=== PATIENT | female | born 1945 | race Caucasian/White ===

== ENCOUNTER 2017-12-05 12:51 | Emergency (ER) | payer MEDICARE, OTHER ==
[~2017-12-05] VITALS: Ht 167.6 cm; Wt 60.0 kg
[~2017-12-05 12:51] MED LIST: LORT5TAB PO; LORT7.5T3 PO; PROM25TA5; TRAM100T19 OR
[2017-12-05 12:58] VITALS: BP 119/70; PULSE 69; RESP 16; TEMP 98.3; O2SAT 98
[2017-12-05] MEDS ORDERED: SODIUM CHLOR 0.9% 1000 ML INJ 1,000 ML IV SCH (13:21)
[2017-12-05] MEDS ORDERED: SODIUM CHLORIDE 0.9% FLUSH 10 ML FLUSH IV FLUSH PRN (13:30)
[2017-12-05] MEDS ORDERED: ONDANSETRON HCL 4 MG/2 ML VIAL IVP ONE (13:30)
[2017-12-05] MEDS ORDERED: PANTOPRAZOLE SODIUM 40 MG VIAL IVP ONE (13:30)
[2017-12-05] MEDS ORDERED: DIATRIZOATE MEGLUM/DIATRIZOATE SOD 9 ML CUP ONE ×2 (13:51→14:05)
--- NOTE | 2017-12-05 13:55 | PD ---
HPI Chief Complaint: GI Complaint Time Seen by Provider: 13:03 Travel History International Travel<30 days: No Contact w/Intl Traveler<30days: No Traveled to known affect area: No History of Present Illness HPI 72-year-old female presents emergency department with ongoing diffuse abdominal pain. Patient has long history of difficulty with her stomach since she was a young woman. She has extensive records with her including recommendations for colonoscopy and CT of the abdomen and pelvis. Patient recently had an ultrasound without significant findings. Patient has been seen by gastroenterology and recommended to have colonoscopy, which the patient does not want to pursue. She states he takes Ativan 0.5 mg daily as well as tramadol recently for her pain which seems to help. Patient also takes Nexium. She has a long list of medications which she currently does not take she states that did not help. Patient denies fever, chills, or vomiting. She does have nausea and decreased appetite. She states her weight loss of 30 pounds in the last 6 months without trying. Pain seems to be mainly in the right upper quadrant and over the stomach region. She denies urinary symptoms or changes. She is a nondrinker. Patient states she likes to use "herbs and vitamins" to treat her symptoms. Patient is allergic to codeine and erythromycin. PFSH Past Medical History Cancer: No Cardiovascular Problems: Yes ([place]) Diabetes: No Hepatitis: No Hiatal Hernia: No Hypertension: No Medical other: Yes (REFLUX, LYME DISEASE) Respiratory: No Immunizations Current: No Thyroid Disease: No ?: Not Menopausal: Yes Past Surgical History Abdominal Surgery: Yes (RADHA) Cholecystectomy: Yes Gynecologic Surgery: Yes (LAPAROSCOPY ) Hysterectomy: Yes Oral Surgery: Yes (TONSILLECTOMY) Other Surgery: Yes Social History Alcohol Use: No Tobacco Use: Yes Substance Use: No Allergies-Medications (Allergen,Severity, Reaction): Coded Allergies: codeine (Unverified Allergy, Severe, Nausea/Vomiting, 04/22/17) NAUSEA VOMITING CONSTIPATION erythromycin base (Unverified Allergy, Severe, Nausea/Vomiting, 04/22/17) NAUSEA VOMITING CONSTIPATION Reported Meds & Prescriptions Reported Meds & Active Scripts Active Reported Tramadol (Tramadol HCl) 50 Mg Tab 50 Mg PO Q4H PRN Ativan (Lorazepam) 0.5 Mg Tab 0.5 Mg PO HS PRN Review of Systems Except as stated in HPI: all other systems reviewed are Neg General / Constitutional: No: Fever Eyes: No: Visual changes HENT: No: Headaches Cardiovascular: No: Chest Pain or Discomfort Respiratory: No: Shortness of Breath Gastrointestinal: Positive: Nausea, Abdominal Pain (See history of present illness), Constipation, Loss of Appetite, No: Vomiting, Diarrhea, Indigestion, Dysphagia Genitourinary: No: Dysuria Musculoskeletal: No: Pain Skin: No Rash Neurologic: No: Weakness Psychiatric: No: Depression Endocrine: No: Polydipsia Hematologic/Lymphatic: No: Easy Bruising Physical Exam Narrative GENERAL: Patient appears in no obvious distress. She is ambulatory to the room in the bathroom without difficulty. SKIN: Warm and dry. Normal color. Normal turgor. No rash. HEAD: Atraumatic. Normocephalic. EYES: Pupils equal and round. No scleral icterus. No injection or drainage. ENT: No nasal bleeding or discharge. Mucous membranes pink and moist. Pharynx is clear. Airways patent. NECK: Trachea midline. Supple and nontender. CARDIOVASCULAR: Regular rate and rhythm. RESPIRATORY: No accessory muscle use. Clear to auscultation. Breath sounds equal bilaterally. GASTROINTESTINAL: Abdomen soft, mild to moderate diffuse tenderness with palpation along the right upper quadrant and epigastric region. There is no guarding or rebound, abdomen is nondistended. Hepatic and splenic margins not palpable. Bowel sounds are normal in all quadrants. There are no masses appreciated. There is no CVA tenderness. MUSCULOSKELETAL: Extremities without clubbing, cyanosis, or edema. No obvious deformities. NEUROLOGICAL: Awake and alert. No obvious cranial nerve deficits. Motor grossly within normal limits. Five out of 5 muscle strength in the arms and legs. Normal speech. PSYCHIATRIC: Appropriate mood and affect; insight and judgment normal. Data Data Last Documented VS Vital Signs Date Time Temp Pulse Resp B/P (MAP) Pulse Ox O2 Delivery O2 Flow Rate FiO2 12/05/17 12:58 98.3 69 16 119/70 (86) 98 Orders Orders Complete Blood Count With Diff (12/05/17 13:21) Comprehensive Metabolic Panel (12/05/17 13:21) Lipase (12/05/17 13:21) Lactic Acid (12/05/17 13:21) Urinalysis - C+S If Indicated (12/05/17 13:21) Ct Abd/Pel W Iv Contrast(Rout) (12/05/17 13:21) Iv Access Insert/Monitor (12/05/17 13:21) Ecg Monitoring (12/05/17 13:21) Oximetry (12/05/17 13:21) Ondansetron Inj (Zofran Inj) (12/05/17 13:30) Pantoprazole Inj (Protonix Inj) (12/05/17 13:30) Sodium Chlor 0.9% 1000 Ml Inj (Ns 1000 M (12/05/17 13:21) Sodium Chloride 0.9% Flush (Ns Flush) (12/05/17 13:30) Oral Contrast - Adult (12/05/17 13:25) Diatrizoate Liq (Md Guerra Liq) (12/05/17 13:51) Diatrizoate Liq (Md Guerra Liq) (12/05/17 14:05) Iohexol 350 Inj (Omnipaque 350 Inj) (12/05/17 15:32) Labs Laboratory Tests Test 12/05/17 13:15 12/05/17 13:35 Urine Color LIGHT-YELLOW Urine Turbidity CLEAR Urine pH 6.5 Urine Specific [place] 1.003 Urine Protein NEG mg/dL Urine Glucose (UA) NEG mg/dL Urine Ketones NEG mg/dL Urine Occult Blood NEG Urine Nitrite NEG Urine Bilirubin NEG Urine Urobilinogen LESS THAN 2.0 MG/DL Urine Leukocyte Esterase NEG Urine WBC LESS THAN 1 /hpf Microscopic Urinalysis Comment CULT NOT INDICATED White Blood Count 5.3 TH/MM3 Red Blood Count 5.05 MIL/MM3 Hemoglobin 15.8 GM/DL Hematocrit 45.3 % Mean Corpuscular Volume 89.7 FL Mean Corpuscular Hemoglobin 31.3 PG Mean Corpuscular Hemoglobin Concent 34.9 % Red Cell Distribution Width 13.9 % Platelet Count 240 TH/MM3 Mean Platelet Volume 8.7 FL Neutrophils (%) (Auto) 55.4 % Lymphocytes (%) (Auto) 31.2 % Monocytes (%) (Auto) 6.9 % Eosinophils (%) (Auto) 3.7 % Basophils (%) (Auto) 2.8 % Neutrophils # (Auto) 2.9 TH/MM3 Lymphocytes # (Auto) 1.7 TH/MM3 Monocytes # (Auto) 0.4 TH/MM3 Eosinophils # (Auto) 0.2 TH/MM3 Basophils # (Auto) 0.1 TH/MM3 CBC Comment DIFF FINAL Differential Comment Blood Urea Nitrogen 11 MG/DL Creatinine 0.93 MG/DL Random Glucose 98 MG/DL Total Protein 7.5 GM/DL Albumin 4.1 GM/DL Calcium Level 9.5 MG/DL Alkaline Phosphatase 74 U/L Aspartate Amino Transf (AST/SGOT) 30 U/L Alanine Aminotransferase (ALT/SGPT) 23 U/L Total Bilirubin 0.5 MG/DL Sodium Level 140 MEQ/L Potassium Level 4.0 MEQ/L Chloride Level 105 MEQ/L Carbon Dioxide Level 27.6 MEQ/L Anion Gap 7 MEQ/L Estimat Glomerular Filtration Rate 60 ML/MIN Lactic Acid Level 1.4 mmol/L Lipase 190 U/L MDM Medical Decision Making Medical Screen Exam Complete: Yes Emergency Medical Condition: Yes Differential Diagnosis Chronic abdominal pain. Pancreatitis. Gastroenteritis. Gastritis. Anxiety. Irritable bowel syndrome. Colitis. Narrative Course Patient is medically stable at time of exam. Labs ordered including CBC, CMP, lipase, lactic acid, urinalysis. IV access is obtained the patient is given 40 mg pantoprazole IV, 4 mg Zofran, and 1000 mL's normal saline bolus. CT of the abdomen and pelvis is ordered with IV and oral contrast. Labs are all within normal limits. Lipase is normal. Lactic acid is normal. Urinalysis is normal. Liver functions are normal. CT of the abdomen showed unremarkable bowel gas pattern with no inflammatory change or obstruction. Status post cholecystectomy. Patient is felt medically stable for discharge. From the patient's history and physical I feel she may suffer from irritable bowel syndrome. Patient is given a trial of Levsin to be taken up to 4 times daily as needed. Patient should follow-up with her service attendant. Diagnosis Primary Impression: Irritable bowel syndrome (IBS) Qualified Codes: K58.0 - Irritable bowel syndrome with diarrhea Referrals: Criminal Justice Instructor Patient Instructions: General Instructions, Irritable Bowel Syndrome (DC) Additional Instructions: Labs are all within normal limits. Lipase is normal. Lactic acid is normal. Urinalysis is normal. Liver functions are normal. CT of the abdomen showed unremarkable bowel gas pattern with no inflammatory change or obstruction. Status post cholecystectomy. Patient is felt medically stable for discharge. From the patient's history and physical I feel she may suffer from irritable bowel syndrome. Patient is given a trial of Levsin to be taken up to 4 times daily as needed. Patient should follow-up with her service attendant. Med/Other Pt SpecificInfo: Prescription(s) given Disposition: 01 DISCHARGE HOME Condition: Stable Rusty Dawson Dec 05, 2017 13:55
[2017-12-05 14:22] LABS: BILIRUBIN, URINE NEG (NEG); BLOOD, URINE NEG (NEG); GLUCOSE,URINE NEG (NEG); KETONE, URINE NEG (NEG); NITRITE,URINE NEG (NEG); PH, URINE 6.5 (5.0-8.5); URINE COLOR LIGHT-YELLOW (YELLW/STRAW); URINE LEUKOCYTE ESTERASE NEG (NEG)
[2017-12-05 14:32] LABS: AUTOMATED NEUTROPHIL # 2.9 TH/MM3 (1.8-7.7); BASOPHIL # 0.1 TH/MM3 (0-0.2); BASOPHIL % 2.8 % (0.0-2.0); EOSINOPHIL # 0.2 TH/MM3 (0-0.4); EOSINOPHIL % 3.7 % (0.0-4.0); HEMATOCRIT 45.3 % (35.0-46.0); HEMOGLOBIN 15.8 GM/DL (11.6-15.3); LYMPH % 31.2 % (9.0-44.0); LYMPHOCYTE # 1.7 TH/MM3 (1.0-4.8); MEAN CELL VOLUME 89.7 FL (80.0-100.0); MEAN CORPUSCULAR HEMOGLOBIN 31.3 PG (27.0-34.0); MEAN CORPUSCULAR HGB CONC 34.9 % (32.0-36.0); MEAN PLATELET VOLUME 8.7 FL (7.0-11.0); MONO % 6.9 % (0.0-8.0); MONOCYTE # 0.4 TH/MM3 (0-0.9); NEUT % 55.4 % (16.0-70.0); PLATELET COUNT 240 TH/MM3 (150-450); RED BLOOD COUNT 5.05 MIL/MM3 (4.00-5.30); RED CELL DISTRIBUTION WIDTH 13.9 % (11.6-17.2); WHITE BLOOD COUNT 5.3 TH/MM3 (4.0-11.0)
[2017-12-05 14:37] LABS: ALBUMIN 4.1 GM/DL (3.4-5.0); AST (GOT) 30 U/L (15-37); BICARBONATE 27.6 MEQ/L (21.0-32.0); BLOOD UREA NITROGEN 11 MG/DL (7-18); CALCIUM 9.5 MG/DL (8.5-10.1); CHLORIDE 105 MEQ/L (98-107); CREATININE 0.93 MG/DL (0.50-1.00); GLOMERULAR FILTRATION RATE 60 ML/MIN (>89); GLUCOSE,RANDOM 98 MG/DL (74-106); SODIUM (NA) 140 MEQ/L (136-145)
[2017-12-05 14:40] LABS: ALKALINE PHOSPHATASE 74 U/L (45-117); ALT (GPT) 23 U/L (10-53); TOTAL BILIRUBIN ADULT 0.5 MG/DL (0.2-1.0); TOTAL PROTEIN 7.5 GM/DL (6.4-8.2)
[2017-12-05] MEDS ORDERED: LORA-392 PO (15:19)
[2017-12-05] MEDS ORDERED: TRAM50TA PO (15:19)
[2017-12-05] MEDS ORDERED: IOHEXOL 350 MG/ML 10 ML VIAL (for RAD DIAG) IVCONTRAST ONE (15:32)
--- NOTE | 2017-12-05 15:42 | RADRPT ---
EXAM DATE/TIME: 12/05/2017 15:24 [facility] COMPARISON: No previous studies available for comparison. INDICATIONS : Right lower quadrant pain, nausea. IV CONTRAST: 97 cc Omnipaque 350 (iohexol) IV ORAL CONTRAST: Prescribed oral contrast ingested. RADIATION DOSE: 6.79 CTDIvol (mGy) MEDICAL HISTORY : Cardiovascular disease. SURGICAL HISTORY : Cholecystectomy. Hysterectomy. ENCOUNTER: Initial ACUITY: 1 day PAIN SCALE: 4/10 LOCATION: Right lower quadrant TECHNIQUE: Volumetric scanning of the abdomen and pelvis was performed. Using automated exposure control and ad justment of the mA and/or kV according to patient size, radiation dose was kept as low as reasonably achievable to obtain optimal diagnostic quality images. DICOM format image data is available electro nically for review and comparison. FINDINGS: LOWER LUNGS: The visualized lower lungs are clear. A small amount of pericardial fluid is present. LIVER: Homogeneous density without lesion. There is no dilation of the biliary tree. Status post cholecyste ctomy. SPLEEN: Normal size without lesion. PANCREAS: Within normal limits. KIDNEYS: Normal in size and shape. There is no mass, stone or hydronephrosis. ADRENAL GLANDS: Within normal limits. VASCULAR: There is no aortic aneurysm. BOWEL/MESENTERY: The stomach, small bowel, and colon demonstrate no acute abnormality. There is no free intraperitone al air or fluid. ABDOMINAL WALL: Within normal limits. RETROPERITONEUM: There is no lymphadenopathy. BLADDER: No wall thickening or mass. REPRODUCTIVE: Within normal limits. INGUINAL: There is no lymphadenopathy or hernia. MUSCULOSKELETAL: Within normal limits for patient age. CONCLUSION: 1. Unremarkable bowel gas pattern with no inflammatory change or obstruction. 2. Status post cholecystectomy. Ag Hatfield MD on December 05, 2017 at 15:37 Board Certified Radiologist. This report was verified electronically.
[2017-12-05] MEDS ORDERED: LEVS0.124 SL (15:47)
[2017-12-05 16:30] VITALS: BP 135/83; PULSE 85; RESP 16; O2SAT 99
[2017-12-05] MEDS ORDERED: ZOFR4TAB PO (16:32)
== END 2017-12-05 17:15 | disposition home or self-care (01) ==
LOC: NEPD 12:51
DX: K58.0 Irritable bowel syndrome with diarrhea (principal); Z72.0 Tobacco use
CPT/HCPCS: 74177; 80053; 81001; 83605; 83690; 85025; 96361; 96374; 96375; 99284; C9113; J2405; J7030; Q9963; Q9967